=== PATIENT | male | born 1995 | race African-American/Black ===

== ENCOUNTER 2019-05-15 20:09 | Emergency (ER) | payer SELFPAY ==
[~2019-05-15] VITALS: Ht 180.3 cm; Wt 83.9 kg
[2019-05-15 20:35] VITALS: BP 131/78
[2019-05-15] MEDS ORDERED: TETRAcaine 5 ML BOTTLE EACHEYE ONE (21:00)
[2019-05-15] MEDS ORDERED: FLUORESCEIN SODIUM OPHTH 1 EA STRIP OP ONE (21:00)
[2019-05-15] MEDS ORDERED: FLUORESCEIN SODIUM OPHTH 1 EA STRIP ONE ×2 (21:07→21:13)
[2019-05-15] MEDS ORDERED: TETRACAINE HCL/PF 0.5% UD 2 ML BOTTLE ONE (21:07)
== END 2019-05-15 21:39 | disposition home or self-care (01) ==
LOC: ER 20:09
DX: H10.89 Other conjunctivitis (principal); B99.8 Other infectious disease; Z97.3 Presence of spectacles and contact lenses; Z60.2 Problems related to living alone

== ENCOUNTER 2020-08-12 18:24 | Emergency (ER) | payer OTHER ==
[~2020-08-12] VITALS: Ht 180.3 cm; Wt 88.5 kg
[2020-08-12 18:43] VITALS: BP 124/72
--- NOTE | 2020-08-12 18:45 | NUR ---
THROAT PAIN AND DISCOMFORT X 2 MONTHS. DENIES DIFFICULTY BREATHING. JOSE AT BEDSIDE FOR EVAL.
== END 2020-08-12 19:30 | disposition home or self-care (01) ==
LOC: ER 18:34
DX: I88.9 Nonspecific lymphadenitis, unspecified (principal); Z60.2 Problems related to living alone